=== PATIENT | male | born 1970 | race Caucasian/White ===

== ENCOUNTER 2017-11-26 09:30 | Emergency (ER) | payer OTHER, SELFPAY ==
[2017-11-26 09:30] VITALS: BP 142/89; PULSE 105; RESP 16; TEMP 38.2; O2SAT 95; BMI 35.7
[2017-11-26] MEDS: 0.9% Normal Saline 1,000 ML 999 ML IV (09:52)
[2017-11-26] MEDS: Acetaminophen 500 MG Tablet 1000 MG PO (09:52)
[2017-11-26 09:53] VITALS: PULSE 108; RESP 20
[2017-11-26] MEDS: Ipratropium/Albuterol Sulfate 3 ML AMPUL.NEB INHALATION (09:53)
[2017-11-26] MEDS: Albuterol 2.5 MG/3 ML VIAL.NEB. INHALATION (09:53)
--- NOTE | 2017-11-26 10:05 | ED.VISSUMM ---
- ER Visit Summary Date of Service: 11/26/17 Chief Complaint: Fever and cough History of Present Illness: The patient is a 47 M who states that afternoon he began to have headache runny nose myalgias. States it came on suddenly. Yesterday his cough worsened. He has an albuterol MDI as he frequently gets bronchitis. He states the MDI helps for about an hour and his cough worsens again. He has had fever. He last took ibuprofen at 0400 hours today. No vomiting or diarrhea. No rash. No neck pain. No light sensitivity. No sore throat. Physical Examination: Temperature 100.8. Heart rate of 105 respirations are 16 pulse ox is 95% blood pressure 142/89 Gen: Well-nourished well-developed Head: Normocephalic atraumatic Eyes: Perrl EOMI ENT: TMs clear turbinate edema and clear rhinorrhea moist mucous membranes Neck: Supple no lymphadenopathy no JVD nontender CVS: Tachycardic and regular rate rhythm no murmurs normal S1-S2 Respiratory: No distress rhonchorous lung sounds chest nontender Abdomen: Soft nontender nondistended normal bowel sounds no masses Back: Nontender Extremity: Nontender no edema Skin: Normal color no rash Neuro: alert orientated ?3 CN II-XII intact normal strength sensation reflexes gait cerebellar Psych: Normal affect normal mood Test Results: Chest x-ray shows no infiltrates. Influenza swab is positive for influenza B Emergency Department Course and Treatment: Patient received breathing treatments and his cough is. He has increased aeration after treatments on lung auscultation. Also received Tylenol and IV fluids. Patient will be discharged home with continued supportive care instructions for oral hydration, fever control, and continued aerosols as needed. He has a nebulizer machine as his son had one but he does not have solution. Impression: 1. Influenza B This note was generated with [employer] dictation software. It may contain incorrect words, spelling, and punctuation that were not noted in review of the chart prior to signing ED Disposition - Plan for ED Patient: Disposition: Home or Assisted Living Chief Complaint: Cough Instructions: ED Flu Prescriptions: Albuterol Aerosols [Ventolin Aerosols] 2.5 mg INHALATION Q4H PRN #25 vial Referrals: Luis Lawson [None] - As Needed Additional Instructions: Tylenol 1000 mg every 6 hours as needed for fever control Ibuprofen 800 mg every 8 hours as needed for fever control Drink plenty of fluids to stay hydrated and try to keep your urine a light yellow Aerosols as needed to help with breathing and coughing Get plenty of rest Your highly contagious at this time. Return if worsening or concerns.
--- NOTE | 2017-11-26 10:36 | RAD_ITS ---
STUDY: X-RAY CHEST REASON FOR EXAM: Male, 47 years old. Cough. TECHNIQUE: PA and lateral views of the chest. COMPARISON: Prior comparison studies are not available for review at this time. FINDINGS: There is an opacity right paratracheal region probably representing an azygous lobe. No focal infiltrate is seen. There is no demonstrated pleural abnormality. Normal size heart. Normal mediastinum and britney. Normal visualized pulmonary arteries. Normal visualized aortic arch and descending thoracic aorta. Normal visualized thoracic spine. Normal visualized ribs, clavicles, and shoulders. There is no demonstrated abnormality of the visualized soft tissue structures of the upper abdomen. RAD/Chest PA and Lateral IMPRESSION: Right paratracheal opacity probably representing azygous lobe although not typical. Comparison with previous examinations is recommended. Otherwise no active pulmonary disease. Electronically Signed: Hung Lindquist MD at 10:56 EDT Tel , Service support ,
[2017-11-26 11:06] VITALS: BP 105/72; PULSE 112; RESP 17; O2SAT 94
== END 2017-11-26 11:09 | disposition home or self-care (01) ==
PROVIDERS: Emergency Provider Emergency Medicine
DX: J10.1 Influenza due to other identified influenza virus with other respiratory manifestations (principal)
CPT/HCPCS: 71046; 87804; 94640; 96360; 99284; J7030; A4216

== ENCOUNTER → 2019-10-30 16:20 | Outpatient (CLI) | payer OTHER, SELFPAY ==
--- NOTE | 2019-10-30 16:34 | EKG12_ITS ---
Test Reason : PRE OP Blood Pressure : / mmHG Vent. Rate : 077 BPM Atrial Rate : 077 BPM P-R Int : 160 ms QRS Dur : 104 ms QT Int : 378 ms P-R-T Axes : 041 009 027 degrees QTc Int : 427 ms Normal sinus rhythm Normal ECG Confirmed by VISHNU BAILEY ([id number]), market editor AUSTIN WAGONER ([id number]) on 11/01/2019 9:44:09 AM Referred By: Hari Cherry Confirmed By:VISHNU BAILEY
[2019-10-30 17:09] LABS: Hematocrit 46.9 % (40-54); Hemoglobin 16.2 g/dL (13.0-16.5); Mean Corpuscular Hgb 31.3 pg (27.0-32.0); Mean Corpuscular Volume 90.7 fL (80-94); Red Blood Count 5.17 M/mm3 (4.6-6.2); White Blood Count 11.2 K/mm3 (4.4-11.0)
[2019-10-30 17:10] LABS: Mean Corp Hgb Conc 34.5 g/dL (32-36); Mean Platelet Vol. 9.3 fl (6.2-12.0); POSITIVE COUNT NO; POSITIVE DIFFERENTIAL NO; POSITIVE MORPHOLOGY NO; Platelet Count 329 K/mm3 (150-450); RBC Distribution Width CV 11.9 % (11.6-14.6); RBC Distribution Width SD 39.8 fl (35.1-43.9); Scan Indicated on CBC? Y/N NO
[2019-10-30 17:18] LABS: Anion Gap 6 (5-15); BUN 22 mg/dL (7-18); BUN/Creat Ratio 24.7 RATIO (10-20); Calcium,Total 9.6 mg/dL (8.5-10.1); Chloride 106 mmol/L (98-107); Creatinine, Serum 0.89 mg/dL (0.70-1.30); EST Glomerular Filtration Rate 97 mL/min (>60); Est Glom Filt Rate - Afr Amer 117 mL/min (>60); Glucose 78 mg/dL (74-106); Potassium 4.1 mmol/L (3.5-5.1); Sodium Level 139 mmol/L (136-145)
== END ==
PROVIDERS: Referring Provider Physician Assistant; Visit Provider Physician Assistant
DX: Z01.818 Encounter for other preprocedural examination (principal); Z01.810 Encounter for preprocedural cardiovascular examination
CPT/HCPCS: 36415; 80048; 85027; 93005